=== PATIENT | male | born 1960 | race Caucasian/White ===

== ENCOUNTER 2017-08-20 06:44 | Emergency (ER) | payer OTHER ==
[~2017-08-20] VITALS: Ht 185.4 cm; Wt 103.2 kg
[2017-08-20] MEDS ORDERED: IBUP-1022 PO (07:02)
[2017-08-20] MEDS ORDERED: TYLE325T5 PO (07:02)
[2017-08-20 08:51] VITALS: BP 152/86
== END 2017-08-20 08:54 | disposition short-term general hospital (02) ==
LOC: EDBD 06:44 → M ED 06:44
DX: M54.5 Low back pain (principal); G98.8 Other disorders of nervous system; G64 Other disorders of peripheral nervous system; W18.39XA Other fall on same level, initial encounter; Y92.89 Other specified places as the place of occurrence of the external cause; Y93.89 Activity, other specified; Y99.8 Other external cause status; F17.210 Nicotine dependence, cigarettes, uncomplicated; Z83.3 Family history of diabetes mellitus; Z83.49 Family history of other endocrine, nutritional and metabolic diseases; Z98.890 Other specified postprocedural states